=== PATIENT | female | born 1945 | race Caucasian/White ===

== ENCOUNTER → 2018-02-23 | Outpatient (CLI) | payer MEDICARE, OTHER | END | disposition home or self-care (01) | LOC: PCVCCLINIC 14:12 | PROVIDERS: ATTEND Internal Medicine Cardiovascular Disease | DX: I25.10 Atherosclerotic heart disease of native coronary artery without angina pectoris (principal); I35.0 Nonrheumatic aortic (valve) stenosis; R60.9 Edema, unspecified | CPT/HCPCS: 93005; G0463 ==

== ENCOUNTER → 2018-08-25 | Outpatient (CLI) | payer MEDICARE, OTHER ==
--- NOTE | 2018-08-25 14:43 | PCVCIMAG ---
APPROVED REPORT Study performed: 08/25/2018 13:12:15 EXAM: Comprehensive 2D, Doppler, and color-flow Echocardiogram Patient Location: Echo lab Status: routine BSA: 1.98 HR: 72 bpmBP: 132/76 mmHg Rhythm: NSR Other Information Study Quality: Adequate Indications Aortic Valve Disease CAD 2D Dimensions IVSd: 12.65 (7-11mm)LVOT Diam: 20.00 (18-24mm) LVDd: 37.91 mm PWd: 15.87 (7-11mm) LVDs: 26.27 (25-40mm) Left Atrium: 46.55 (27-40mm) Volumes Left Atrial Volume (Systole) Single Plane 4CH: 81.34 mLSingle Plane 2CH: 82.99 mL LA ESV Index: 47.00 mL/m2 Aortic Valve AoV Peak Keven.: 5.99 m/s AO Peak Gr.: 143.63 mmHgLVOT Max P.76 mmHg AO Mean Gr.: 108.99 mmHgLVOT Mean P.20 mmHg AO V2 Mean: 5.06 m/sLVOT Max V: 1.56 m/s AO V2 VTI: 148.91 cm KOREY (VTI): 0.89 [id number] V1 VTI: 42.72 cm KOREY Vmax: 0.81 cm2 AI Vmax: 4.06 m/s AI Wilkes: 3.20 m/s2 AI PHT: 368.76 ms Mitral Valve MV Peak Gr.: 10.66 mmHg MV Mean Gr.: 6.47 mmHgE/A Ratio: 1.2 MV Decel. Time: 296.86 ms MV E Max Keven.: 1.68 m/s MV A Keven.: 1.43 m/s MV Max Keven.: 1.62 m/s MV VTI: 468.03 mm MVA VTI: 283.86 mm2 MV PHT: 86.09 ms MVA (PHT): 2.43 cm2 IVRT: 51.90 ms TDI E/Lateral E': 24.00E/Medial E': 33.60 Medial E' Keven.: 0.05 m/s Lateral E' Keven.: 0.07 m/s Pulmonary Valve PV Peak Keven.: 1.12 m/sPV Peak Gr.: 4.98 mmHg Pulmonary Vein P Vein S: 0.54 m/sP Vein A: 0.35 m/s P Vein D: 0.33 m/sP Vein A Dur.: 86.5 msec P Vein S/D Ratio: 1.64 Tricuspid Valve TR Peak Keven.: 3.32 m/sRAP Estimate: 7.00 mmHg TR Peak Gr.: 43.98 mmHg PA Pressure: 51.00 mmHg Left Ventricle The left ventricle is normal size. Basal inferior hypokinesis. Moderate concentric left ventricular hypertrophy. Left ventricular systolic function is normal. The left ventricular ejection fraction is within the normal range. LVEF is 55-60%. Moderate diastolic dysfunction is present (pseudonormal filling). Right Ventricle The right ventricle is normal size. The right ventricular systolic function is normal. Atria Left atrium is moderately dilated. The right atrium size is normal. Aortic Valve Aortic valve is heavily calcified. Mild aortic regurgitation. Severe aortic stenosis. Peak arotic valve gradient is 143 mmHg. The aortic valve area is 0.8 cm2. Mitral Valve Mitral valve leaflets are moderately thickened. There is mitral annular calcification. Mild mitral regurgitation. Tricuspid Valve The tricuspid valve is normal in structure. Mild tricuspid regurgitation. Pulmonary artery pressure is 51 mmHg. Moderate pulmonary hypertension. Pulmonic Valve The pulmonary valve is normal in structure. There is no pulmonic valvular regurgitation. Great Vessels The aortic root is normal in size. IVC is normal in size and collapses >50% with inspiration. Pericardium There is no pericardial effusion. <Conclusion> The left ventricle is normal size. Moderate concentric left ventricular hypertrophy. Left ventricular systolic function is normal. Moderate diastolic dysfunction is present (pseudonormal filling). The right ventricle is normal size. Left atrium is moderately dilated. The right atrium size is normal. Severe aortic stenosis. Mild aortic regurgitation. Mitral valve leaflets are moderately thickened. There is mitral annular calcification. Mild mitral regurgitation. Mild tricuspid regurgitation. Pulmonary artery pressure is 51 mmHg. Moderate pulmonary hypertension.
== END | disposition home or self-care (01) ==
LOC: PCVCIMAG 13:11
PROVIDERS: ATTEND Internal Medicine Cardiovascular Disease
DX: I08.3 Combined rheumatic disorders of mitral, aortic and tricuspid valves (principal); I25.10 Atherosclerotic heart disease of native coronary artery without angina pectoris; R60.9 Edema, unspecified
CPT/HCPCS: 93005; 93306; G0463